=== PATIENT | male | born 1985 | race Caucasian/White ===

== ENCOUNTER → 2020-03-05 | Outpatient (CLI) | payer OTHER | END | disposition home or self-care (01) | LOC: LABWHC1 13:08 | PROVIDERS: ATTEND Nurse Practitioner Family | DX: Z20.828 Contact with and (suspected) exposure to other viral communicable diseases (principal) | CPT/HCPCS: U0003; C9803 ==

== ENCOUNTER → 2024-02-05 | Outpatient (CLI) | payer OTHER ==
--- NOTE | 2024-02-05 16:33 | US ---
EXAMINATION TYPE: US scrotum with doppler. Grayscale and color Doppler Duplex imaging performed of t he scrotum. DATE OF EXAM: 02/05/2024 COMPARISON: NONE CLINICAL INDICATION: Male, 38 years old with history of K40.90 UNIL INGUINAL HERNIA, W/O OBST OR GANG R, NO; Pain left testicle EXAM MEASUREMENTS: TESTICLES: Right Testicle: 4.7 x 2.1 x 3.2 cm Left Testicle: 4.4 x 2.3 x 3.2 cm EPIDIDYMIS HEAD: Right Epididymis: 1.2 cm Left Epididymis: 1.2 cm Doppler performed to assess for testicular vascularity; good bilateral color flow and waveforms are s een. There is no evidence of testicular torsion. Presence of hydroceles: no Presence of varicoceles: yes, lateral to left testicle calcifications noted bilateral testes tubular structures posterior to right testicle IMPRESSION: 1. There is testicular calcifications with varicocele lateral to the left testes. Nonspecific promine nt tubular structures are seen posterior to the right testicle. [facility], , 02/05/2024 4:31 PM
== END | disposition home or self-care (01) ==
LOC: RADUSWWP 15:45
DX: K40.90 Unilateral inguinal hernia, without obstruction or gangrene, not specified as recurrent (principal); I86.1 Scrotal varices
CPT/HCPCS: 76870; 93975